=== PATIENT | male | born 1960 | race Caucasian/White ===

== ENCOUNTER 2022-05-24 12:15 | Emergency (ER) | payer BC, SELFPAY ==
--- OUTSIDE RECORDS SUMMARY | 2022-05-24 12:19 | XMS_ITS | Clinical Summary ---
:1960 Author Organization [facility] [place] [address] Care Team Providers Name Role Phone Pcp, No Primary Care Provider Unavailable Allergies No known active allergies Medications Medication Sig Dispensed Refills Start Date End Date Status omeprazole magnesium Take by mouth. 0 Active (PRILOSEC ORAL) Active Problems Not on file Social History Tobacco Use Types Packs/Day Years Used Date Never Smoker Smokeless Tobacco: Never Used Alcohol Use Standard Drinks/Week Comments Never 0 (1 standard drink = 0.6 oz pure alcoho l) Alcohol Habits Answer Date Recorded How often do you have a drink containing alcohol? Never 06/10/2019 How many drinks containing alcohol do you have on a typical Not asked day when you are drinking? How often do you have six or more drinks on one occasion? No t asked Comment: Not asked Sex Assigned at Date Recorded Not on file Obstetrics History Last Filed Vital Signs Vital Sign Reading Time Taken Comments Blood Pressure 141/79 06/10/2019 4:21 PM CDT Pulse 67 06/10/2019 4:21 PM CDT Temperature 36.4 ??C (97.6 ??F) 06/10/2019 4:21 PM CDT Respiratory Rate 18 06/10/2019 4:21 PM CDT Oxygen Saturation 98% 06/10/2019 4:21 PM CDT Inhaled Oxygen Concentration - - Weight 108.2 kg (238 lb 9.6 oz) 06/10/2019 4:21 PM CDT Height - - Body Mass Index - - Plan of Treatment Not on file Results Not on filefrom Last 3 Months Insurance Payer Benefit Plan / Subscriber ID Effective Dates Phone Addre ss Type Group BLUE CROSS BLUE CROSS OF [id number] 2018-Present [id number] [place] [phone] ([place]) [place] [address] Care Teams Turbine Room Attendant Relationship Specialty Start Date End Date Pcp, No PCP - General 06/10/19 .
[2022-05-24 12:28] VITALS: BP 142/83; PULSE 68; RESP 16; TEMP 36.2; O2SAT 94; BMI 34.3
--- NOTE | 2022-05-24 12:53 | CRLHL7_ITS ---
For Patients: As a result of the Century Cures Act, medical imaging exams and procedure reports are released immediately into your electronic medical record. You may view this report before your referring provider. If you have questions, please contact your health care provider. INDICATION: Shortness of breath. TECHNIQUE: Chest 2 views. COMPARISON: None. FINDINGS: No focal consolidation, pleural effusion, or pneumothorax. Normal heart size and pulmonary vascularity. Screw projected over the left scapula. The bones are otherwise unremarkable. IMPRESSION: No acute cardiopulmonary findings. Dictated by Marbella Caraballo MD @ 05/24/2022 1:24:05 PM (Electronically Signed)
[2022-05-24 13:15] LABS: Lactate* 1.2 mmol/L (0.5-1.9)
[2022-05-24 13:16] VITALS: O2SAT 95
[2022-05-24 13:18] LABS: Basophils Absolute Auto 0.03 K/uL (0.00-0.30); Basophils Percent Auto 0.5 % (0.0-3.0); Eosinophils Absolute Auto 0.11 K/uL (0.00-0.50); Eosinophils Percent Auto 1.7 % (0.0-7.0); Hemoglobin* 15.8 gm/dL (13.5-17.5); Lymphocytes Absolute Auto 1.44 K/uL (0.90-2.90); Lymphocytes Percent Auto 22.3 % (20-44); Mean Corpuscular HGB Conc 34 gm/dL (32-36); Mean Corpuscular Hemoglobin 29 pg (26-34); Mean Corpuscular Volume 86 fL (80-100); Monocytes Percent Auto 9.6 % (0.0-11.0); Neutrophils Absolute Auto 4.25 K/uL (1.7-7.0); Neutrophils Percent Auto 65.9 % (42.0-72.0); Platelet Count* 256 K/uL (140-440); RDW Coefficient of Variation % 13.4 % (11.5-15.5); White Blood Count* 6.45 K/uL (4.50-11.00)
[2022-05-24 13:38] LABS: Albumin* 4.3 g/dL (3.3-5.0); Chloride* 104 mmol/L (96-114); Sodium* 139 mmol/L (135-149)
--- OUTSIDE RECORDS SUMMARY | 2022-05-24 13:38 | XMS_ITS | Clinical Summary ---
:1960 Author Organization [employer] [facility] [place] [address] Care Team Providers Name Role Phone Pcp, [...] Type Group BLUE [employer]OSS BLUE CROSS OF [id number] 2018-Present [phone] [place] [phone] ([place]) [place] [address] Care Teams Skip Loader Relationship Specialty Start Date End Date Pcp, No PCP - General 06/10/19 .
[2022-05-24 13:39] LABS: Potassium* 3.9 mmol/L (3.6-5.1); Slide Review Reflex No
[2022-05-24 13:40] LABS: Creatinine* 1.2 mg/dL (0.5-1.5); Est. Creatinine Clearance* 66.28; Estimated Glomerular Filt Rate 70 ml/min
[2022-05-24 13:41] LABS: Alanine Aminotransferase* 28 U/L (4-50); Alkaline Phosphatase* 113 U/L (40-150); Aspartate Amino Transferase* 34 U/L (12-35); Bilirubin Total* 0.5 mg/dL (0.1-1.5); Blood Urea Nitrogen* 28 mg/dL (7-30); Carbon Dioxide* 26 mmol/L (20-32); Glucose* 102 mg/dL (60-115); Total Protein* 7.2 g/dL (6.0-8.3)
[2022-05-24 13:42] LABS: Calcium* 9.5 mg/dL (8.4-10.6)
[2022-05-24 13:57] LABS: Troponin I* < 0.01 ng/mL (0.01-0.04)
--- NOTE | 2022-05-24 14:26 | ED.GENADULT ---
HPI - General Adult General Chief complaint: Arrhythmia/Palpitations Stated complaint: chest achiness,irregular heart yi Time Seen by Provider: 05/24/22 12:46 History of Present Illness HPI narrative: [age] year male coming in today complaining of chest discomfort present for a couple of weeks. Discomfort is located across the entire chest he describes it as a very mild pressure. No sharp pain. He denies feeling short of breath. He denies this discomfort changing with physical activity. He is also concerned because every now and then he feels his heart skip a beat or have extra beats. Last night his heart was pounding in the middle of the night. While this was occurring he was not having chest pain or shortness of breath. He denies any recent fevers or chills. He is not coughing. Denies abdominal pain. He has no pain in his back. No headaches or blurry vision. No changes in his appetite or unintentional weight loss. He does have a history of obstructive sleep apnea uses a CPAP machine. He takes no other medications. Related Data Home Medications Medication Instructions Recorded Confirmed omeprazole 20 mg capsule,delayed 20 mg PO DAILY 05/24/22 05/24/22 release Allergies Allergy/AdvReac Type Severity Reaction Status Date / Time No Known Drug Allergies Allergy Verified 05/24/22 12:35 Review of Systems Status of ROS: Reports: 10 or more systems reviewed and unremarkable except as noted in History and below [facility] Social History Smoking Status: Smoker, status unknown Non-prescribed substance use: denies use Exam Narrative: Exam Narrative: Overweight, well-developed patient in no acute distress. Alert and oriented. Answers questions appropriately. Mood and affect are appropriate. Thoughts are goal oriented and rational. No tangential or magical thinking noted. Patient speaks in full sentences without needing to catch his breath. Voice sounds normal. Speech is not slurred or pressured. HEENT: Normocephalic atraumatic. Pupils are equally round reactive to light. Extraocular muscles are intact. Conjunctivae are moist without any icterus noted. Moist mucous membranes. Posterior pharynx is normal. Neck is soft without any lymphadenopathy or thyromegaly. No masses are appreciated. Cardiovascular: Heart is regular rate and rhythm S1 and S2 are present without any murmurs. I cannot reproduce his discomfort on palpation. Lungs: Clear to auscultation bilaterally no wheezes rhonchi or rales are appreciated. Patient takes deep breaths without any discomfort. Abdomen: Protuberant, Soft and nontender nondistended with normal bowel sounds. No guarding or rebound. No masses or organomegaly appreciated. Extremities: Bilateral lower extremities are without edema. Normal DP and PT pulses. Skin: Well perfused without any obvious rashes. Const: Vital Signs, click to edit/add: Vital Signs - 24 hr 05/24/22 12:28 05/24/22 13:16 Temperature 97.2 F L Pulse Rate [Right Pulse Oximeter] 68 Respiratory Rate 16 Blood Pressure [Ri ght Upper Arm] 142/83 H Pulse Oximetry 94 95 Oxygen Delivery Me thod Room Air Course Course Hospital Course: EKG showed normal sinus rhythm with premature ventricular complexes. While on the monitor in the ER, he had frequent PVCs. Lab workup was entirely normal. Chest x-ray was unremarkable. Patient was asymptomatic while he was here. Vital Signs Vital signs: Initial Vital Signs Temperature 97.2 F L 05/24/22 12:28 Temperature Source Temporal Artery Scan 05/24/22 12:28 Pulse Rate 68 05/24/22 12:28 Respiratory Rate 16 05/24/22 12:28 Blood Pressure 142/83 H 05/24/22 12:28 Blood Pressure Mean 102 05/24/22 12:28 Blood Pressure Position Sitting 05/24/22 12:28 Pulse Oximetry 94 05/24/22 12:28 Oxygen Delivery Method 05/24/22 12:28 Vital Signs Temperature 97.2 F L 05/24/22 12:28 Pulse Rate 68 05/24/22 12:28 Respiratory Rate 16 05/24/22 12:28 Blood Pressure 142/83 H 05/24/22 12:28 Pulse Oximetry 94 05/24/22 12:28 Oxygen Delivery Method 05/24/22 12:28 Temperature 97.2 F L 05/24/22 12:28 Pulse Rate 68 05/24/22 12:28 Respiratory Rate 16 05/24/22 12:28 Blood Pressure 142/83 H 05/24/22 12:28 Pulse Oximetry 95 05/24/22 13:16 Oxygen Delivery Method 05/24/22 12:28 Medical Decision Making MDM Narrative Medical decision making narrative: 61-year-old male with palpitations and chest discomfort. Do not believe his discomfort is cardiac in nature. Patient will be discharged home today with 24 hour Holter monitor. Likely the palpitations he is feeling are his PVCs. He will follow up with primary care next week. Return to the ER if symptoms worsen. Patient was agreeable and had no other questions. Medical Records Medical records reviewed: Yes I reviewed the patient's medical records Lab Data Lab results reviewed: Yes I reviewed the patient's lab results Labs: Lab Results 05/24/22 05/24/22 05/24/22 Range/Units 13:05 13:05 13:05 WBC 6.45 (4.50-11.00) K/uL RBC 5.50 (4.30-5.90) m/uL Hgb 15.8 (13.5-17.5) gm/dL Hct 47.0 (37.0-53.0) % MCV 86 (80-100) fL MCH 29 (26-34) pg MCHC 34 (32-36) gm/dL RDW Coeff of Chuckie 13.4 (11.5-15.5) % Plt Count 256 (140-440) K/uL Neut % (Auto) 65.9 (42.0-72.0) % Lymph % (Auto) 22.3 (20-44) % [place] % (Auto) 9.6 (0.0-11.0) % Eos % (Auto) 1.7 (0.0-7.0) % Baso % (Auto) 0.5 (0.0-3.0) % Neut # (Auto) 4.25 (1.7-7.0) K/uL Lymph # (Auto) 1.44 (0.90-2.90) K/uL [place] # (Auto) 0.60 (0.00-0.90) K/UL Eos # (Auto) 0.11 (0.00-0.50) K/uL Baso # (Auto) 0.03 (0.00-0.30) K/uL Abs Immat Gran (auto) 0.00 (0.00-0.30) K/uL D-Dimer Quant (PE/DVT) 0.40 (0.00-0.50) ug/ml Sodium 139 (135-149) mmol/L Potassium 3.9 (3.6-5.1) mmol/L Chloride 104 (96-114) mmol/L Carbon Dioxide 26 (20-32) mmol/L BUN 28 (7-30) mg/dL Creatinine 1.2 (0.5-1.5) mg/dL Estimated Creat Clear 66.28 Estimated GFR 70 ml/min Glucose 102 (60-115) mg/dL Lactate (0.5-1.9) mmol/L Calcium 9.5 (8.4-10.6) mg/dL Total Bilirubin 0.5 (0.1-1.5) mg/dL Direct Bilirubin 0.0 (0.0-0.5) mg/dL AST 34 (12-35) U/L ALT 28 (4-50) U/L Alkaline Phosphatase 113 (40-150) U/L Troponin I (0.01-0.04) ng/mL Total Protein 7.2 (6.0-8.3) g/dL Albumin 4.3 (3.3-5.0) g/dL TSH (0.270-4.20) uIU/mL 05/24/22 05/24/22 05/24/22 Range/Units 13:05 13:05 13:05 WBC (4.50-11.00) K/uL RBC (4.30-5.90) m/uL Hgb (13.5-17.5) gm/dL Hct (37.0-53.0) % MCV (80-100) fL MCH (26-34) pg MCHC (32-36) gm/dL RDW Coeff of Chuckie (11.5-15.5) % Plt Count (140-440) K/uL Neut % (Auto) (42.0-72.0) % Lymph % (Auto) (20-44) % [place] % (Auto) (0.0-11.0) % Eos % (Auto) (0.0-7.0) % Baso % (Auto) (0.0-3.0) % Neut # (Auto) (1.7-7.0) K/uL Lymph # (Auto) (0.90-2.90) K/uL [place] # (Auto) (0.00-0.90) K/UL Eos # (Auto) (0.00-0.50) K/uL Baso # (Auto) (0.00-0.30) K/uL Abs Immat Gran (auto) (0.00-0.30) K/uL D-Dimer Quant (PE/DVT) (0.00-0.50) ug/ml Sodium (135-149) mmol/L Potassium (3.6-5.1) mmol/L Chloride (96-114) mmol/L Carbon Dioxide (20-32) mmol/L BUN (7-30) mg/dL Creatinine (0.5-1.5) mg/dL Estimated Creat Clear Estimated GFR ml/min Glucose (60-115) mg/dL Lactate 1.2 (0.5-1.9) mmol/L Calcium (8.4-10.6) mg/dL Total Bilirubin (0.1-1.5) mg/dL Direct Bilirubin (0.0-0.5) mg/dL AST (12-35) U/L ALT (4-50) U/L Alkaline Phosphatase (40-150) U/L Troponin I < 0.01 L (0.01-0.04) ng/mL Total Protein (6.0-8.3) g/dL Albumin (3.3-5.0) g/dL TSH 3.170 (0.270-4.20) uIU/mL Imaging Data Chest x-ray: Attestation: I have reviewed the pertinent imaging results. My impression: No acute findings Radiologist's impression: Chest 2 views. COMPARISON: None. FINDINGS: No focal consolidation, pleural effusion, or pneumothorax.? Normal heart size and pulmonary vascularity. Screw projected over the left scapula. The bones are otherwise unremarkable. IMPRESSION: No acute cardiopulmonary findings. ECG Data Attestation: I personally reviewed and interpreted this ECG as follows: (Normal sinus rhythm, pulse of 70, occasional PVCs) Discharge Plan Discharge Clinical Impression: Palpitations, Premature ventricular complex Patient Disposition: Home, Self-Care Condition: Stable Additional Instructions: Follow-up with your primary care provider once your Holter monitor results have been turned in. Return to the ER if your symptoms worsen. Prescriptions: No Action omeprazole 20 mg capsule,delayed release(DR/EC) 20 mg PO DAILY Follow Up/Referrals: Provider,Not a Local [Primary Care Provider] - Stand Alone Forms: [employer] Info Instructions
[2022-05-24 15:25] VITALS: BP 126/89; PULSE 68; RESP 16; TEMP 36.2
== END 2022-05-24 15:26 | disposition home or self-care (01) ==
PROVIDERS: Emergency Provider Family Medicine
DX: R00.2 Palpitations (principal); I49.3 Ventricular premature depolarization
CPT/HCPCS: 36415; 71046; 80048; 80076; 83605; 84443; 84484; 85025; 85379; 93005; 93225; 93226; 94761; 99284; 99285

== ENCOUNTER 2023-07-17 18:41 | Emergency (ER) | payer OTHER, SELFPAY ==
[2023-07-17 18:54] VITALS: BP 149/83; PULSE 84; RESP 21; TEMP 37.1; O2SAT 95; BMI 31.9
--- NOTE | 2023-07-17 19:20 | ED_ITS ---
HPI - General Adult General Chief complaint: Cough Stated complaint: Cough/wheeze/ heavy chest Time Seen by Provider: 07/17/23 18:58 History of Present Illness HPI narrative: This 62-year-old male comes in reporting rather sudden onset of upper respiratory symptoms that began early today. He reports frequent cough and a feeling of being short of breath. He does not report any fevers. Related Data Home Medications Medication Instructions Recorded Confirmed omeprazole 20 mg capsule,delayed 20 mg PO DAILY 05/24/22 05/24/22 release Allergies Allergy/AdvReac Type Severity Reaction Status Date / Time No Known Drug Allergies Allergy Verified 07/17/23 18:57 Review of Systems Status of ROS: Reports: 10 or more systems reviewed and unremarkable except as noted in History and below Narrative: Constitutional: No fevers, no weight gain or loss. Eyes: No discharge. No vision changes. HENT: No congestion, no sore throat, no ear pain. Cardiovascular: No chest pain, no palpitations. Respiratory: Cough with shortness of breath. Gastrointestinal: No abdominal pain, no vomiting, no diarrhea. Genitourinary: No dysuria, no hematuria. Musculoskeletal: Normal range of motion. Skin: No rashes, no pruritis. Neurological: No dizziness, weakness, sensory change, speech change. Endo/Heme/Allergies: No bruising or bleeding. No polydipsia. Pysch: no suicidality, no anxiety, no insomnia. All other systems reviewed and are negative. [facility] Social History Smoking Status: Smoker, status unknown How often do you have a drink containing alcohol: never How often do you have six or more drinks on one occasion: Never AUDIT-C Alcohol total score: 0 Non-prescribed substance use: denies use Exam Const: Vital Signs, click to edit/add: Vital Signs - 24 hr 07/17/23 18:54 Temperature 98.8 F Pulse Rate [Right Pulse Oximeter] 84 Respiratory Rate 21 Blood Pressure [Ri ght Upper Arm] 149/83 H Pulse Oximetry 95 Oxygen Delivery Me thod Room Air Course Vital Signs Vital signs: Initial Vital Signs Temperature 98.8 F 07/17/23 18:54 Temperature Source Temporal Artery Scan 07/17/23 18:54 Pulse Rate 84 07/17/23 18:54 Pulse Rhythm Regular 07/17/23 18:54 Pulse Strength 3+ Normal 07/17/23 18:54 Respiratory Rate 21 07/17/23 18:54 Blood Pressure 149/83 H 07/17/23 18:54 Blood Pressure Mean 105 07/17/23 18:54 Blood Pressure Position Sitting 07/17/23 18:54 Pulse Oximetry 95 07/17/23 18:54 Oxygen Delivery Method Room Air 07/17/23 18:54 Vital Signs Temperature 98.8 F 07/17/23 18:54 Pulse Rate 84 07/17/23 18:54 Respiratory Rate 21 07/17/23 18:54 Blood Pressure 149/83 H 07/17/23 18:54 Pulse Oximetry 95 07/17/23 18:54 Oxygen Delivery Method Room Air 07/17/23 18:54 Temperature 98.8 F 07/17/23 18:54 Pulse Rate 84 07/17/23 18:54 Respiratory Rate 21 07/17/23 18:54 Blood Pressure 149/83 H 07/17/23 18:54 Pulse Oximetry 95 07/17/23 18:54 Oxygen Delivery Method Room Air 07/17/23 18:54 Medications Administered Medications: Generic Name Dose Route Start Last Admin Trade Name Freq PRN Reason Stop Dose Admin Dexamethasone 10 mg 07/17/23 19:18 07/17/23 19:28 Dexamethasone 10 Mg/Ml Inj PO 07/17/23 19:19 10 mg ONCE ONE Administration Medical Decision Making MDM Narrative Medical decision making narrative: This patient comes in with sudden onset of symptoms of upper respiratory infection that began earlier today. He does arrive here with normal vital signs. Nasal pharyngeal swab returns positive for influenza A. The patient did receive an oral dose of dexamethasone 10 mg. Prescriptions for Tamiflu and Tyl enol 3 or provided. I advised him to return if worsening symptoms occur. Lab Data Labs: Lab Results 07/17/23 Range/Units 18:53 SARS-CoV-2 (PCR) Negative SARS-CoV-2 (Negative) Influenza Type A (PCR) POSITIVE PCR FLU A A (Negative) Influenza Type B (PCR) Negative PCR FLU B (Negative) RSV (PCR) Negative PCR RSV (Negative) Discharge Plan Discharge Clinical Impression: Influenza A Patient Disposition: Home, Self-Care Condition: Unchanged Additional Instructions: Take prescription medications as indicated. Follow up with MD or return if worsening symptoms happen. Prescriptions: No Action omeprazole 20 mg capsule,delayed release(DR/EC) 20 mg PO DAILY Follow Up/Referrals: Provider,Not a Local [Primary Care Provider] - Stand Alone Forms: [employer] Info Instructions
[2023-07-17] MEDS: dexAMETHasone 10 MG/ML inj PO (19:28)
[2023-07-17 19:44] LABS: PCR FLU A POSITIVE PCR FLU A (Negative); PCR FLU B Negative PCR FLU B (Negative); PCR RSV Negative PCR RSV (Negative)
[2023-07-17 19:48] LABS: SARS PCR* Negative SARS-CoV-2 (Negative)
[2023-07-17 20:12] VITALS: BP 129/80; PULSE 84; RESP 20; TEMP 38.9; O2SAT 96
== END 2023-07-17 20:10 | disposition home or self-care (01) ==
LOC: ED 20:09
PROVIDERS: Emergency Provider Emergency Medicine Emergency Medical Services
DX: J10.1 Influenza due to other identified influenza virus with other respiratory manifestations (principal)
CPT/HCPCS: 87631; 99283; 99284; J1100

== ENCOUNTER 2023-11-10 16:36 | Emergency (ER) | payer OTHER, SELFPAY ==
[2023-11-10 17:07] VITALS: BP 144/87; PULSE 72; RESP 18; TEMP 36.6; O2SAT 97; BMI 34.2
[2023-11-10 17:47] LABS: Strep A DNA Probe* NOT DETECTED (Not Detectd)
--- NOTE | 2023-11-10 18:03 | ED_ITS ---
HPI - General Adult General Time Seen by Provider: 18:03 Date Seen: 11/10/23 Chief complaint: Sore Throat Stated complaint: Strep test Time Seen by Provider: 11/10/23 18:03 Source: patient, RN notes reviewed and old records reviewed Mode of arrival: ambulatory Limitations: no limitations History of Present Illness HPI narrative: Patient is a very pleasant 63-year-old gentleman previously healthy who comes to the emergency room for evaluation regarding a sore throat that is been ongoing for approximately 4 days. Patient notes that 2 weeks ago he had a tooth removed was a move on amoxicillin for 7 days. Today after his tooth was removed he began experiencing a significant headache he describes as radiating and stabbing into his right ear and into his forehead. This was associated with approximately 3 days of feeling hot and then cold. He really had no significant cough or difficulty breathing. He describes the headache as migrainous in nature although he has not had migraines in the past. He notes that this is an much improved after the initial 6 days. He he notes that 4 days ago he had the onset of a sore throat and use worried about strep because he and his family are traveling to [place] for spring in the next couple of days. He does not know of any ill contacts to include COVID or influenza. He did received the initial COVID vaccinations but none since that time. He did not receive his influenza vaccine this year. Chema denies difficulty breathing but does note occasional green phlegm when he coughs. No chest pain. Denies lower extremity calf pain or edema. Does note resolution of the right ear pain and he has not had a runny nose. No fever since the initial 3 days of feeling hot or cold. He does note that he has had some loose stools recently. No vomiting however. Chema is worried because he has persistent fatigue and he usually bounces back after illness. He notes that he had influenza a last fall. He has had COVID in the past stating that he had at when in initially started. Related Data Home Medications Medication Instructions Recorded Confirmed omeprazole 20 mg capsule,delayed 20 mg PO DAILY 05/24/22 05/24/22 release Allergies Allergy/AdvReac Type Severity Reaction Status Date / Time No Known Drug Allergies Allergy Verified 07/17/23 18:57 Review of Systems Status of ROS: Reports: 6 or more systems reviewed and unremarkable except as noted in History and below Const: Reports: chills and fatigue Eyes: Denies: change in vision ENMT: Reports: throat pain; Denies: hoarseness, swelling of lips/tongue or nasal congestion Cardio: Denies: chest pain or shortness of breath with exertion Resp: Reports: cough (Occasional); Denies: shortness of breath or pain on inspiration GI: Reports: diarrhea (Loose stools); Denies: abdominal pain, nausea or vomiting : Denies: painful urination Integ/Breast: Denies: rash Neuro: Reports: headache (Now resolved) Endo: Reports: fatigue PFSH PFS Social History Smoking Status: Never smoker How often do you have a drink containing alcohol: never How often do you have six or more drinks on one occasion: Never AUDIT-C Alcohol total score: 0 Non-prescribed substance use: denies use Exam Narrative: Exam Narrative: Patient is alert and oriented. Very pleasant well-spoken gentleman in no acute distress. Eyes are clear and EOM is full. No injection or scleral icterus. Head is atraumatic normocephalic. TMs bilaterally without erythema or fluid. Nose is without rhinitis. Oral cavity moist mucous membranes. I do not detect significant erythema or exudate in the posterior oropharynx. No swelling. Neck is supple without lymphadenopathy. Heart with regular rate and rhythm. Lungs are clear in all lung kenney. Abdomen soft nontender. Lower extremities without calf tenderness. Moving all extremities. Const: Vital Signs, click to edit/add: Vital Signs - 24 hr 11/10/23 17:07 Temperature 97.9 F Pulse Rate [Right Pulse Oximeter] 72 Respiratory Rate 18 Blood Pressure [Ri ght Upper Arm] 144/87 H Pulse Oximetry 97 Oxygen Delivery Me thod Room Air Documenting provider has reviewed patient's vital signs: yes Course Course ED Course: Differential diagnosis includes but is not limited to strep, URI, influenza, COVID, RSV, allergic reaction. Patient has clear lung sounds, no evidence of significant erythema in the posterior oropharynx. His strep test ordered by the nursing staff is negative. At this time I am wondering based on his description of his symptoms if he actually had COVID initially 2 weeks ago after having his tooth removed. The sore throat that has now been present last 4 days along with the loose stools is more consistent with what we have been seeing with influenza B. At this time, patient is out of the window for any treatment if he does test positive for COVID or influenza. I do not feel he needs a chest x-ray with care lung sounds appropriate oxygen levels and no fever. He is urinating without difficulty and eating and drinking. Do not feel the need to get any blood work as he has no chronic medical problems. Chema is appropriate with this plan. Will be discharged and await my phone call at home. Vital Signs Vital signs: Initial Vital Signs Temperature 97.9 F 11/10/23 17:07 Temperature Source Temporal Artery Scan 11/10/23 17:07 Pulse Rate 72 11/10/23 17:07 Respiratory Rate 18 11/10/23 17:07 Blood Pressure 144/87 H 11/10/23 17:07 Blood Pressure Mean 106 H 11/10/23 17:07 Blood Pressure Position Sitting 11/10/23 17:07 Pulse Oximetry 97 11/10/23 17:07 Oxygen Delivery Method Room Air 11/10/23 17:07 Vital Signs Temperature 97.9 F 11/10/23 17:07 Pulse Rate 72 11/10/23 17:07 Respiratory Rate 18 11/10/23 17:07 Blood Pressure 144/87 H 11/10/23 17:07 Pulse Oximetry 97 11/10/23 17:07 Oxygen Delivery Method Room Air 11/10/23 17:07 Temperature 97.9 F 11/10/23 17:07 Pulse Rate 72 11/10/23 17:07 Respiratory Rate 18 11/10/23 17:07 Blood Pressure 144/87 H 11/10/23 17:07 Pulse Oximetry 97 11/10/23 17:07 Oxygen Delivery Method Room Air 11/10/23 17:07 Medical Decision Making MDM Narrative Medical decision making narrative: 1. Pharyngitis-at this time Chema has tested negative for strep COVID influenza and RSV. I think this is most likely a virus causing his symptoms. He has no evidence of swelling or compromise of the airway. Symptomatic cares at this time. Patient did call back and nursing staff did give him his final results. 2. Disposition-home. Seek medical attention for worsening symptoms and as needed. I did discuss with patient that I do not feel the need for chest x-ray given his exam, any blood work. I strongly suspect he had COVID 2 weeks ago after he had his tooth pulled based on symptoms. He does tell me rib more than once that he is much better this week but was concerned about going on a trip as he has not ?bounce back?. Follow-up with primary MD if not improving. Medical Records Medical records reviewed: Yes I reviewed the patient's medical records Lab Data Lab results reviewed: Yes I reviewed the patient's lab results Labs: Lab Results 11/10/23 11/10/23 Range/Units 17:09 18:17 SARS-CoV-2 (PCR) Negative SARS-CoV-2 (Negative) Influenza Type A (PCR) Negative PCR FLU A (Negative) Influenza Type B (PCR) Negative PCR FLU B (Negative) RSV (PCR) Negative PCR RSV (Negative) Group A Strep DNA NOT DETECTED (Not Detectd) Discharge Plan Discharge Clinical Impression: Pharyngitis Qualifiers: Pharyngitis/tonsillitis etiology: unspecified etiology Qualified Code(s): J02.9 - Acute pharyngitis, unspecified Patient Disposition: Home, Self-Care Condition: Unchanged Additional Instructions: If you do not hear from us by 2200 hours, please call [phone] for your test results. Ibuprofen or Tylenol may be used if needed. Seek medical attention for worsening symptoms, vomiting and as needed. Prescriptions: No Action omeprazole 20 mg capsule,delayed release(DR/EC) 20 mg PO DAILY Follow Up/Referrals: Provider,Not a Local [Primary Care Provider] - Stand Alone Forms: [employer] Info Instructions
[2023-11-10 19:32] LABS: PCR FLU A Negative PCR FLU A (Negative); PCR FLU B Negative PCR FLU B (Negative); PCR RSV Negative PCR RSV (Negative); SARS PCR* Negative SARS-CoV-2 (Negative)
== END 2023-11-10 18:34 | disposition home or self-care (01) ==
PROVIDERS: Emergency Provider Family Medicine
DX: J02.9 Acute pharyngitis, unspecified (principal)
CPT/HCPCS: 87631; 87651; 99282; 99283

== ENCOUNTER 2024-12-18 18:35 | Emergency (ER) | payer OTHER, SELFPAY ==
--- OUTSIDE RECORDS SUMMARY | 2024-12-18 18:37 | XMS_ITS | Clinical Summary ---
Author Organization [facility] Address [address] [place] [id number] Care Team Providers Care Supervisor Production Name Role Phone Pcp, No Primary Care Provider Unavailabl e Allergies No known active allergies Medications omeprazole magnesium (PRILOSEC ORAL) Take by mouth. Active Encounters Date Type Department Care Team Description 12/08/2024 7:30 AM CDT Office Visit [facility] [address] [place] [address] [phone] Hein, Bonifacio Mark, DO Preoperative Exam (DOS: 12/29/2024) 12/08/2024 Travel 12/05/2024 Travel from Last 3 Months Immunizations Immunization Administration Dates Next Due Hep B (Hepatitis B (Adult) R ecombinant Adjuvanted) 12/04/2022,07/10/2022 Hepatitis A (Adult) 07/10/2022,11/05/2012 Influenza Virus, Unspecified 09/19/2010 Pneumococcal Conj 20-valent (Prevnar 20) 025 Tdap 12/04/2022,11/05/2012,09/08/2006 Zoster (Shingrix-RZV, recombinant) 12/08/2024, Zoster (Zostavax-ZVL, live) 11/05/2012 Social History Tobacco Use Types Packs/Day Years Used Date Smoking Tobacco: Never Smokeless Tobacco: Never Alcohol Use Standard Drinks/Week Comments Never 0 (1 standard drink = 0.6 oz pur e alcohol) Social Connections Answer Date Recorded Do you often feel lonely or isolated from those around you? 0 12/05/2024 Financial Resource Strain Answer Date R ecorded Difficulty of Paying Living Expenses 3 12/05/2024 Difficulty of Paying Living Expenses Not on file 12/05/2024 Food Insecurity Answer Date Recorded Do you worry your food will run out before you are able to buy more? 1 12/05/2024 Transportation Needs Answer Date Record ed Does lack of transportation keep you from medica l appointments? 1 12/05/2024 Does lack of transportation keep you from work, meetings or getting things that you need? 1 12/05/2024 Housing Stability Answer Date Recorded What is your housing situation today? 1 12/05/2024 Utilities Answer Date Recorded Do you have trouble paying f or utilities (for example, heat, electricity, water, phone)? 1 12/05/2024 Sex and Gender Information Value Date Recorded Sex Assigned at Not on file Legal Sex Male 1:00 PM CDT Gender Identity Not on file Sexual Orientation Not on file Obstetrics History Last Filed Vital Signs Vital Sign Reading Time Taken Comments Blood Pressure 140/80 12/08/2024 7:42 AM CDT Pulse 70 12/08/2024 7:39 AM CDT Temperature 36.6 C (97.8 F) 12/08/2024 7:39 AM CDT Respiratory Rate 18 06/10/2019 4:21 PM CDT Oxygen Saturation 98% 12/08/2024 7:3 9 AM CDT Inhaled Oxygen Concentration - - Weight 108.1 kg (238 lb 6.4 oz) 025 7:39 AM CDT with shoes Height 175.4 cm (5' 9.06) 12/08/2024 7 :39 AM CDT with shoes Body Mass Index 35.15 12/08/2024 7:39 AM CDT Plan of Treatment Health Maintenance Due Date Last Done Comments Depression screening for age 12+ 1974 HIV for age 15-65 1977 Hepatitis C screening for age 18-79 1980 Colonoscopy through age 75 10/29/2007 Lipids for age 45-75 10/29/2007 RSV vaccine for adults or pr egnancy (1 - Risk 60-74 years 1-dose series) 2022 COVID-19 vaccine series ( season) 2024 Influenza Vaccine (Season Ended) 2025 09/19/19 11 BMI (ht and wt on same day) for age 18+ 12/08/2025 12/08/2024 Tetanus booster 12/04/2032 12/04/2022, 10/17, 09/08/2006 Tdap Completed 12/04/2022, 10/17, 09/08/2006 Pneumococcal series for age 50+ Completed 5 Zoster (shingles) series for age 50+ Completed 12/08/2024, 12/04/2022, 11/05/2012 Insurance [facility] MEDICA CHOICE Care Teams Supervisor Production Relationship Specialty Start Date End Date Pcp, No . PCP - General 06/10/19
--- OUTSIDE RECORDS SUMMARY | 2024-12-18 18:37 | XMS_ITS | Encounter Summary ---
Author Organization [facility] Address [address] [place] [address] Care Team Providers Care Adzing And Boring Machine Helper Name Role Phone Iris Laughlin APRN, CNP Primary Care Provider Reason for Visit * Reason Comments Appt. Needed Encounter Details Date Type Department Care Team (Late st Contact Info) Description 03/26/2011 Telephone Digestive Care at [facility] at [address] [place] [address] Iris Laughlin APRN, ELECTRIC SWITCH TESTER [address] [place], [place] [id number] Appt. Needed Social History Tobacco Use Types Packs/Day Years Used Date Smoking Tobacco: Never Assessed Sex and Gender Information Value Date Recorded Sex Assigned at Not on file Legal Sex Male 3:33 AM CDT Gender Identity Not on file Sexual Orientation Not on file documented as of this encounter Nursing Notes * Emilio Chadwick - 03/26/2011 2:35 PM CDT GI dept called to schedule appt for colonoscopy see orders documented in this encounter Plan of Treatment Not on file documented as of this encounter Visit Diagnoses Not on filedocumented in this encounter Care Teams Adzing And Boring Machine Helper Relationship Specialty Start Date End Date Iris Laughlin APRN, ELECTRIC SWITCH TESTER [address] [place] [address] PCP - General 04/10/11 documented as of this encounter
--- OUTSIDE RECORDS SUMMARY | 2024-12-18 18:38 | XMS_ITS | Clinical Summary ---
[facility] Address [address], [place] [address] Care Team Providers Care Requirements Engineer Name Role Phone Qian Iris Prince APRN, CNP Primary Care Provider Source Comments You are receiving this document as you are listed as the primary care provider,follow-up provider, or the patient has been referred to you for consultation.This is in compliance with the Medicare and[facility] Hospitalca[facility] EHR Incentive Program,which states Providers who transition their patient to another setting of careor provider of care or refers their patient to another provider of care shouldprovide summary care record for each transition of care or referral. [facility] Allergies No known active allergies Medications AUVI-Q SOAJ Inject 0.3 mLs into the muscle as needed for Anaphylaxis. December Repeat Indications: ANAPHYLAXIS 1 each 1 1 Active omeprazole (PRILOSEC) 20 MG capsule Take 1 Capsule (20 mg) by mouth daily. 2 Active ALBUterol sulfate HFA 108 (90 Base) MCG/ACT inhaler Inhale 1-2 Puffs every 4 hours as needed for Wheezing. 1 Each 3 Active benzonatate (TESSALON) 100 MG capsule Take 1-2 Capsules (100-200 mg) by mouth three times a day as needed for Cough. 30 Capsule 3 Active amoxicillin (AMOXIL) 875 MG tablet Take 1 Tablet (875 mg) by mouth two times a day. 4 Active HYDROcodone-marco antonio taminophen (NORCO) 5-325 MG tablet Take 1 Tablet by mouth every 4 hours as needed. 4 Active Active Problems Problem Noted Date Diagnosed Date Urticaria, chronic 07/24/2011 Angioedema 06/18/2011 Cellulitis of arm 04/10/2011 Hemorrhage, anal or rectal 03/25/2011 Overview (03/22/2016): with Hemorrhoidal excoriation. Pruritus ani 03/25/2011 GERD (gastroesophageal reflux disease) 1 Family History Medical History Relation Name Comments Asthma Mother Relation Name Status Comments Mother Social History Tobacco Use Types Packs/Day Years Used Date Smoking Tobacco: Never Alcohol Use Standard Drinks/Week Comments No 0 (1 standard drink = 0.6 oz pur e alcohol) Sex and Gender Information Value Date Recorded Sex Assigned at Not on file Legal Sex Male 3:33 AM CDT Gender Identity Not on file Sexual Orientation Not on file Last Filed Vital Signs Vital Sign Reading Time Taken Comments Blood Pressure 163/86 11/03/2023 11:07 AM CDT Pulse 63 11/03/2023 11:07 AM CDT Temperature 36.7 C (98 F) 11/03/2023 8:41 AM CDT Respiratory Rate 18 11/03/2023 11:07 AM CDT Oxygen Saturation 100% 11/03/2023 11:07 AM CDT Inhaled Oxygen Concentration - - Weight 99.8 kg (220 lb) 06/18/2011 10:18 AM CDT Height 174 cm (5' 8.5) 06/18/2011 10:18 AM CDT Body Mass Index 32.96 06/18/2011 10:18 AM CDT Plan of Treatment Health Maintenance Due Date Last Done Comments Colon Cancer Screening Plan Due 1960 Hep C Screening (Preventive Services) 1960 PSA Screening Discussion 1962 HIV Screening (Preventive Services) 1978 Adult Preventive Visit 1980 Cholesterol 1997 Pneumococcal Vaccine 50+ Yrs (1 of 1 - PCV) 2012 Zoster/Shingles Vaccine (3 o f 3) 01/29/2023 12/04/2022, 11/05/2012 COVID-19 Vaccine (2023-2 5 season) 2024 Influenza Vaccine (Season Ended) 2025 09/19/2010 DTaP/Tdap/Td Vaccine (4 - Tdap) 12/04/2032 12/04/2022, 11/05/2012, 09/08/2006 RSV Vaccine (1 - 1-dose 75+ series) 2037 HepA Vaccine Aged Out 07/10/2022, 11/05/2012 No longer eligible based on patient's age to complete this topic HepB Vaccine Aged Out No longer eligi ble based on patient's age to complete this topic Hib Vaccine Aged Out No longer eligi ble based on patient's age to complete this topic IPV (Polio) Vaccine Aged Out No longe r eligible based on patient's age to complete this topic MCV4 Vaccine Aged Out No longer eligi ble based on patient's age to complete this topic Meningococcal B Vaccine Aged Out No l onger eligible based on patient's age to complete this topic Insurance MEDICA CHOICE Advance Directives * Full Code (Latest Code Status on File) Date Activated Date Inactivated Comments 04/10/2011 7:42 PM 04/11/2011 8:43 PM Care Teams Requirements Engineer Relationship Specialty Start Date End Date Iris Laughlin APRN, SUPERVISOR PYROTECHNIC LOADING [address] [place] [address] PCP - General 04/10/11
[2024-12-18 18:39] VITALS: BP 167/104; PULSE 78; RESP 18; TEMP 36.7; O2SAT 98; BMI 34.2
--- NOTE | 2024-12-18 18:51 | CRLHL7_ITS ---
For Patients: As a result of the Century Cures Act, medical imaging exams and procedure reports are released immediately into your electronic medical record. You may view this report before your referring provider. If you have questions, please contact your health care provider. INDICATION: Chest wall Pain, injury TECHNIQUE: Chest radiograph, Rib radiographs 4 views right COMPARISON: None FINDINGS: The sensitivity and specificity of the exam are moderately limited by the patient`s body habitus. Mediastinum: The mediastinum is normal in appearance. The heart silhouette is normal in size and morphology. Lung: Both lungs are unremarkable in appearance. A 4 mm nodule is noted in the right lateral lung base, possibly a granuloma. No sign of pleural effusion seen. No pneumothorax is identified. Ribs and bones: No definite acute rib fractures are identified in the visualized ribs. The remaining osseous structures are unremarkable for age. A radiographic marker is noted over the inferior right hemithorax, designating the site of maximal reported symptoms. Soft tissue: Unremarkable. IMPRESSION: 1. No acute cardiopulmonary disease is seen. No acute rib injuries noted. Dictated by: Bethel Lara MD @ 12/18/2024 19:53:21 (Electronically Signed)
--- OUTSIDE RECORDS SUMMARY | 2024-12-18 18:58 | XMS_ITS | Clinical Summary ---
Author [facility] Address [address], [place] [address] Care Team Providers Care Database Marketing Analyst Name Role Phone Qian Iris Prince APRN, CNP Primary Care Provider Source Comments You are receiving this document as you are listed as the primary care provider,follow-up provider, or the patient has been referred to you for consultation.This is in compliance with the Medicare andOhio[facility] Hospitalcaid EHR Incentive Program,which states Providers who transition their patient to another setting of careor provider of care or refers their patient to another provider of care shouldprovide summary care record for each transition of care or referral. [employer] Allergies No known active allergies Medications AUVI-Q [...] 7:42 PM 04/11/2011 8:43 PM Care Teams Database Marketing Analyst Relationship Specialty Start Date End Date Iris Laughlin APRN, ELECTRIC METER TESTER HELPER [address] [place] [address] PCP - General 04/10/11
--- OUTSIDE RECORDS SUMMARY | 2024-12-18 18:58 | XMS_ITS | Encounter Summary ---
Author Organization [facility] Address [address] [place] [address] Care Team Providers Care Printed Circuit Board Assembler Name Role Phone Iris Laughlin APRN, CNP Primary Care Provider Reason for Visit * Reason Comments Appt. Needed Encounter Details Date Type Department Care Team (Late st Contact Info) Description 03/26/2011 Telephone Digestive Care at [facility] at [address] [place] [address] Iris Laughlin APRN, CODING ADVISOR [address] [place], [place] [phone] Appt. Needed Social History Tobacco Use Types [...] on filedocumented in this encounter Care Teams Printed Circuit Board Assembler Relationship Specialty Start Date End Date Iris Laughlin APRN, CODING ADVISOR [address] [place] [address] PCP - General 04/10/11 documented as of this encounter
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
[2024-12-18 19:55] VITALS: PULSE 72; RESP 18; O2SAT 96
== END 2024-12-18 20:28 | disposition home or self-care (01) ==
PROVIDERS: Emergency Provider Family Medicine
DX: R07.81 Pleurodynia (principal); V29.39XA Other motorcycle (driver) (passenger) injured in unspecified nontraffic accident, initial encounter
CPT/HCPCS: 71101; 99283; 99284